=== PATIENT | female | born 1990 | race Native Hawaiian/Other Pacific Islander ===

== ENCOUNTER 2018-10-23 10:47 | Outpatient (CLI) | payer OTHER | END 2018-10-23 19:26 | disposition home or self-care (01) | LOC: RAD 10:47 | DX: M54.5 Low back pain (principal); M25.551 Pain in right hip ==

== ENCOUNTER 2020-03-23 08:09 | Emergency (ER) | payer OTHER ==
[~2020-03-23] VITALS: Ht 162.6 cm; Wt 63.5 kg
[2020-03-23] MEDS ORDERED: BUPR1SUBFM SL (08:28)
[2020-03-23] MEDS ORDERED: KP FOLIC ACID1 MG PO (08:29)
[2020-03-23] MEDS ORDERED: PAXIL10 MG PO (08:29)
[2020-03-23] MEDS ORDERED: IRON325 MG PO (08:30)
[2020-03-23] MEDS ORDERED: TRILEPTAL150 MG PO (08:30)
[2020-03-23 09:03] LABS: PLATELET COUNT 255 K/uL (152-353)
[2020-03-23 09:11] LABS: POTASSIUM 3.3 mmol/L (3.6-5.2)
[2020-03-23 14:56] VITALS: BP 140/80; TEMP 99.1
== END 2020-03-23 15:05 | disposition short-term general hospital (02) ==
LOC: ED 08:12
PROVIDERS: Emergency Medicine Emergency Medical Services
DX: R10.2 Pelvic and perineal pain (principal)
CPT/HCPCS: 80053; 81000; 81025; 82150; 83690; 85027; 87210; 96360; 96365; 96375; 96376; 99284; J0696; J1885; J2270; J2405; Q9963